=== PATIENT | female | born 1940 | race Caucasian/White ===

== ENCOUNTER → 2017-03-29 | Outpatient (CLI) | payer OTHER, MEDICARE ==
[~2017-03-29] MED LIST: ALUMCHW2 PO; ANAS1TAB19 PO; ASPI-232 PO; CALC1TAB56 PO; MAGNESIUM PO; MULT-506 PO; PLANTAB3 PO; VITACAP37 PO
[2017-03-29 14:08] VITALS: BP 116/77; PULSE 82; TEMP 36.8; O2SAT 97
--- NOTE | 2017-03-29 16:34 | Radiation Oncology Follow-Up ---
Radiation Oncology Follow-Up Date of Visit Mar 29, 2017. 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 She is noted no changes to her breast. There is been no masses or tenderness and no change of the axilla. She 's had no swelling of her arm. She is on Arimidex. She does have hot flashes. She's been taking vitamin E and this does help to make the hot flashes less severe. She is up-to-date on mammography. She had a mammogram at [facility] on 03/22/2017. Allergies Coded Allergies: Amoxicillin (Unverified Allergy, Unknown, rash, swelling, 04/11/14) Uncoded Allergies: ADEHESIVES (Allergy, Unknown, RASH, 07/21/14) Home Medications Scheduled Anastrozole (Arimidex), 1 MG PO DAILY Aspirin (Aspir-81), 1 TAB PO DAILY Calcium-Magnesium W/ Vitamin D (Citracal Calcium+D Slow R), 2 TAB PO DAILY Multivitamin (Multivitamin), 1 TAB PO DAILY Plant Sterols And Stanols (Cholest Off), 2 TAB PO BID Vitamin E (E-400), 1 CAP PO DAILY [mAGNESIUM], 400 MG PO DAILY Scheduled PRN Aluminum Hydroxide-Mag Trisil (Gaviscon), 1 TAB PO for Heartburn Review of Systems Gastrointestinal: Symptoms: WNL Oral: Symptoms: No Problems Respiratory: Symptoms: WNL Urinary: Symptoms: WNL Skin: Symptoms: No Problems Breast: Right Upper Arm Measurement: 29.6 Right Mid Arm Measurement: 24.5 Right Wrist Measurement: 15.4 Left Upper Arm Measurement: 29.5 Left Mid Arm Measurement: 24.0 Left Wrist Measurement: 15.4 Arm Dominence: Right Patient Cosmetic Evaluation: Excellent Staff Cosmetic Evalaluation: Excellent Physical Exam Vital Signs Date Time Temp Pulse Resp B/P (MAP) Pulse Ox O2 Delivery O2 Flow Rate FiO2 03/29/17 14:08 36.8 82 16 116/77 97 Fatigue: None General Appearance: no apparent distress Eyes: normal inspection, EOMI ENT: normal ENT inspection, hearing grossly normal Neck: no adenopathy, thyroid normal Respiratory/Chest: lungs clear, no respiratory distress, no accessory muscle use Breast: Breast examination reveals well-healed incisions of the right breast. There are mild fibrous changes just above the nipple. There are no masses or tenderness and no axillary adenopathy. There are no skin retractions or nipple changes. Using the [place] score cosmesis she has a excellent outcome. Left breast showed no masses or tenderness and no axillary adenopathy. Cardiovascular: regular rate, rhythm, no gallop, no murmur Abdomen: normal bowel sounds, non tender Extremities: no pedal edema Neurologic/Psychiatric: no motor/sensory deficits, alert, normal mood/affect Skin: warm/dry Pain Management Patient Reports Pain: No Side: Bilateral Patient Preferred Pain Scale: 0 - 10 Initial Pain Intensity: 0.0 Pain Management Plan She requires no pain management. Laboratory Laboratory Results: not applicable Pathology Pathology Results: not applicable Imaging Imaging Studies: were reviewed, and pertinent findings noted below Imaging Comments She had a mammogram 03/22/2017 at [facility]. This showed no evidence to suggest malignancy. One year follow-up was recommended. BI-RADS Category 2. Assessment & Plan Plan: Continue annual mammography. We discussed that this should continue to be a diagnostic mammogram. She'll continue the vitamin E for the hot flashes. She continues on Arimidex. I suggested gentle massage to the area of fibrous tissue. She'll plan to return to our office in 1 year. She'll schedule this when she returns home from [place] in August. She may call if she has any questions or concerns in the interim. Total Time In Follow-Up I spent 20 minutes speaking to the patient and performing examination. I spent 15 minutes reviewing information in completing this note. Copy To Carmine Peralta D.O.; Yissel Dorantes M.D.
== END | disposition home or self-care (01) ==
LOC: C.ONC 13:57
PROVIDERS: ATTEND Physician Assistant Medical
DX: Z08 Encounter for follow-up examination after completed treatment for malignant neoplasm (principal); Z92.3 Personal history of irradiation; Z85.3 Personal history of malignant neoplasm of breast